=== PATIENT | female | born 1975 ===

== ENCOUNTER 2017-07-20 04:46 | Inpatient (IN) | payer MEDICAID ==
[2017-07-20 04:55] VITALS: BMI 30.4
[2017-07-20] MEDS ORDERED: Benzocaine/Menthol SPRAY TOP PRN (05:07)
[2017-07-20] MEDS ORDERED: Oxycodone/Acetaminophen 5/325 mg Tab PO PRN ×2 (05:07)
[2017-07-20] MEDS ORDERED: Oxytocin 30 units/LR 500ML 30 U/500 ML BAG IV SCH (05:15)
--- NOTE | 2017-07-20 05:27 | OBHP ---
Datetime: 07/20/2017 05:11 IP Adm Impression: Term, intrauterine IP Chief Complaint Other: Del at home IP Adm Impression Other: S/P home delivery IP Admit Plan: Admit to unit; Initiate labor protocol Admit Comment, IP Provider: CC: home del HPI: 42 YO AMA , 39.2 wks delivered a baby girl at home. Per pt she had ctx that started last night and became more regular through the night. Per EMS and patient, SROM was at approximately 3:45, shower del of baby 3:59, at which time baby fell into the floor during delivery. EMS arrived on scen e at 4:04. 9/9. EMS Vitals: BP 128/72, HR 82. MD: DINA-Dr. Zapien ObH: JOHN SOUSA- del x 2 PMH: denies SurgH: denies FH: denies SH: denies smoking, ETOH, no illicit drug use Meds: PNV Allergies: NKDA PE Gen: NAD Cardio: S1S2 n additional sounds Resp: Clear breath sounds b/l Abdomen: BS+, tenderness/soreness Neuro: AAOx 3 Ext: No edema, NT A/P: 42 YO 39.2wks delivered baby girl at [facility] on 07/20/17. Placenta still in place, with 1st deg l ac noted. -admit to L_D -extract the placenta, repair lac -blood work -peds informed -start post NVD protocol Pt seen and examined by Dr. Belkys Alfaro, PGY I OB hospitalist note...patient seen with pgy1 and correctoin - 2nd degree laceratoin MAHNDO PLAN: reparied with 2.0 Vicryl RAPIDE SUTURE; Lidocaine infiltrated Pelvic Type - PN: Adequate Extremities - PN: Normal Abdomen - PN: Normal Back - PN: Not Done Lungs - PN: Normal Heart - PN: Normal Thyroid - PN: Not Done Neurologic - PN: Normal HEENT - PN: Normal General - PN: Normal Comments, ACOG Physical Exam: Second degree laceration IP Hx Assessment: The History has been Reviewed and is Current Vital Signs Provider: Reviewed; Within Normal Limits IP Chief Complaint: Other Genitourinary Exam: Normal DTRs - PN: Not Done
--- NOTE | 2017-07-20 05:35 | OBDS ---
MATERNAL INFORMATION Provider Comments: 42 YO @ 39.2wks delivered baby girl at home n 07/20/17, @3:59. Per EMS, during delivery baby fell into the shower. of 9/9 and weight of 3115g. Placenta was extracted at 4:45 . 2nd deg lac was noted and repaired, lidocaine used. Mother and baby both tolerated procedure BABY fell 1-2feet to floor acc to father and Dr Agrawal notified VAGINAL DELIVERY Episiotomy: None Laceration Extension: Second Degree Laceration Type: Perineal Laceration Repair: Yes Laceration Repair Note: 2st deg lac repaired with 2.0 vicryl Sponge Count Correct: Yes Sharps Count Correct: Yes Count Comment: one syringe; one suture needle; 5 lap pads
[2017-07-20 06:14] LABS: BASO % 0.4 % (0.0-2.0); EOS # 0.1 K/uL (0.0-0.7); EOS % 0.5 % (0.0-4.0); HEMOGLOBIN 13.6 g/dL (12.0-16.0); LYMPH # 1.8 K/uL (1.0-4.3); LYMPH % 13.6 % (20.0-40.0); MEAN CELL VOLUME 94.3 fl (81.0-99.0); MEAN CORPUSCULAR HEMOGLOBIN 31.1 pg (27.0-31.0); MEAN CORPUSCULAR HGB CONC 32.9 g/dL (33.0-37.0); MEAN PLATELET VOLUME 11.2 fl (7.2-11.7); MONO # 0.8 K/uL (0.0-0.8); NEUT # 10.6 K/uL (1.8-7.0); NEUT % 79.5 % (50.0-75.0); RBC 4.38 Mil/uL (3.80-5.20); RED CELL DISTRIBUTION WIDTH 13.5 % (11.5-14.5); WHITE BLOOD COUNT 13.3 K/uL (4.8-10.8)
[2017-07-21 07:10] LABS: BASO # 0.1 K/uL (0.0-0.2); BASO % 0.6 % (0.0-2.0); EOS # 0.1 K/uL (0.0-0.7); EOS % 1.3 % (0.0-4.0); HEMOGLOBIN 11.3 g/dL (12.0-16.0); LYMPH # 2.3 K/uL (1.0-4.3); LYMPH % 25.1 % (20.0-40.0); MEAN CELL VOLUME 93.7 fl (81.0-99.0); MEAN CORPUSCULAR HGB CONC 34.2 g/dL (33.0-37.0); MEAN PLATELET VOLUME 10.3 fl (7.2-11.7); MONO # 0.7 K/uL (0.0-0.8); MONO % 8.2 % (0.0-10.0); NEUT # 5.9 K/uL (1.8-7.0); NEUT % 64.8 % (50.0-75.0); RBC 3.53 Mil/uL (3.80-5.20); RED CELL DISTRIBUTION WIDTH 13.6 % (11.5-14.5)
[2017-07-21] MEDS ORDERED: Influenza Vaccine 18yr & older 0.5 ML/45 MCG SYR IM ONE (09:00)
--- NOTE | 2017-07-22 09:47 | OBDCSUM ---
Datetime: 07/22/2017 05:30 Discharged to, Provider: Home Follow up at, Provider: [facility] Disch Instr Activity: Normal activity; May be up to bathroom; May be up for meals; May Shower Disch Instr Diet: Regular Discharge Instructions, Provider: Routine instructions given Discharge Diagnosis, Provider: Term Delivered Discharge Time: 07/22/2017 05:30 Follow up in weeks, Provider: 6 weeks Contraception discussed, Prov: Yes Disch Activity Restrictions: No exercising; No lifting; No driving; Minimize stair-climbing; No sexu al activity; Nothing in vagina - [place], tampons, douche Discharge Comment, Provider: 42 YO PPD1, s/p NVD, gave at home to a baby girl, 39.2wks IU P, on 07/20/17 @ 3:59AM. of 9/9 and weight of 3115g. No complications during the post- lito od. Pt is tolerating PO diet, pain is well controlled, and ambulating without difficulties. Doing wel l PP day 2. Discharge Instructions: 1.Encourage 2.PNV 1 tab po daily 3.Ibuprofen 600mg 1 tab prn for mild-mod pain 4.ER precautions: If excessive bleeding or fever without relief from medication, go to ED 5.F/U in [facility] in 6 weeks for PP visit and follow up in 2-3 days for baby. Supriya Alfaro, PGY I Contraception after Delivery: Undecided
--- NOTE | 2017-07-22 09:48 | OBPPN ---
Datetime: 07/22/2017 05:28 PP Pain Prov: Within normal limits PP Nausea Prov: Denies PP Flatus Prov: Yes PP BM Prov: Yes PP Breasts Prov: Not Done PP Heart Prov: Normal PP Lungs Prov: Normal PP Abdomen/Uterus Prov: Normal PP Lochia Prov: Normal PP Vulva/Perineum Prov: Normal PP CVA Tenderness Prov: Normal PP Extremities Prov: Normal PP C/S Incision Prov: Not Applicable PP Progress Prov: Normal PP Impression Prov: Normal progression PP Plan Prov: Continue present management; Discharge PP Progress Note Prov: S: 42 YO PPD2, s/p NVD on 07/20/17. Pt is seen and examined by bedside thi s AM. No acute overnight events. Minimal abdominal pain. Pt is ambulating, bleeding like menses and t olerating PO diet. + BM and passing flatus. Denies chest pain, dyspnea, n/v, fever/chills, diarrhea, nausea/vomiting, and calf pain. O: VS: wnl, afebrile GEN: Awake, alert, baby. HEENT: EOMI, moist mucosa. LUNGS: CTA B/L, no wheezing, rhonci, or rales CVS: RRR, S1,S2 no murmurs ABD: ND, +BS, soft abdomen, firm fundus, below umbilicus. EXT: no edema, neg calf tenderness NEURO/PSYCHI: AAOx3, no grossly focal deficit, preserved affect and mood. Assessment/Plan: 42 YO PPD2, s/p NVD on 07/20/17, gave to a baby girl. Delivery complicat ed by, at home with intact placenta and 2nd deg lac on admission. No post complications. Pt remains afebrile, tolerating pain with medication, good PO intake and urinating without any diffi culties. Doing well on PPD2. -C/w regular diet as tolerated. -OOB with caution SCDs for DVT prophylaxis -C/w Percocet 5/325 mg and Ibuprofen 600 mg for pain prn -C/w Colace 100mg PO BID -Encourage and ambulating. -will d/c pt home today -pp follow up in 6 weeks and for baby in 2-3days Supriya Alfaro, PGY I Addendum by Dr. Bonilla: I have evaluated the patient independently and I agree with the above Vital Signs Provider PP: Reviewed; Within Normal Limits
[2017-07-22 20:56] VITALS: BP 112/55; PULSE 83; RESP 19; TEMP 98.3; O2SAT 100
== END 2017-07-22 16:45 | disposition home or self-care (01) | DRG 373 ==
LOC: H.L&D 04:46 → H.OB/GYN 08:30
PROVIDERS: ADMIT Obstetrics & Gynecology; ATTEND Obstetrics & Gynecology
PROC: 0KQM0ZZ Repair Perineum Muscle, Open Approach (ICD-10-PCS; principal; 2017-07-20)
PROC: 10E0XZZ Delivery of Products of Conception, External Approach (ICD-10-PCS; 2017-07-20)
PROC: 4A1HXCZ Monitoring of Products of Conception, Cardiac Rate, External Approach (ICD-10-PCS; 2017-07-20)
DX: O70.1 Second degree perineal laceration during delivery (principal); Z37.0 Single live birth; Z3A.39 39 weeks gestation of pregnancy